=== PATIENT | male | born 1995 | race Hispanic/Latino ===

== ENCOUNTER 2017-09-15 12:07 | Emergency (ER) | payer SELFPAY ==
[2017-09-15] MEDS ORDERED: KETOROLAC TROMETHAMINE 30MG/ML ONE (12:55)
== END 2017-09-15 13:29 | disposition home or self-care (01) ==
LOC: EDH 12:07
DX: M25.511 Pain in right shoulder (principal); G40.802 Other epilepsy, not intractable, without status epilepticus; Z72.0 Tobacco use
CPT/HCPCS: 73030; 82948; 96372; 99284; J1885

== ENCOUNTER 2024-11-08 19:28 | Emergency (ER) | payer BC ==
[~2024-11-08] VITALS: Ht 167.6 cm; Wt 86.2 kg
[~2024-11-08 19:28] MED LIST: AMOX1TAB16 PO
--- NOTE | 2024-11-08 19:53 | ERN ---
ED Note History of Present Illness Stated Complaint: HERE FOR SUTURE REMOVAL Chief Complaint: Suture/Staple Removal Time Seen by MD: 19:30 Time Seen by Midlevel: 19:33 Dictation: 29-year-old male with no past medical history in for suture removal to the left eye. The sutures were placed five days ago and was told to return today to remove sutures. Patient denies any complaints any injury no fever no signs of infection. Allergies: Coded Allergies: No Known Allergies (Unverified Allergy, Unknown, 11/04/24) Home Meds Active Scripts Amoxicillin/Potassium Clav (Amox Tr-K Clv 875-125 mg Tab) 875 Mg-125 Mg Tablet, 1 TAB PO BID for 5 Days, #10 TAB 0 Refills Prov:BASSEM CONTRERAS CORE PILER 11/04/24 Past Medical History Past Medical History: No Pertinent History Surgical History: None Review of System Dictation Constitutional: Negative for fever,chills, and weight loss Eyes: Negative for injury, pain,redness, and discharge ENT: Negative for injury,pain or swelling Cardiovascular: Negative for chest pain, palpitations, and edema Respiratory: Negative for shortness of breath, cough, and wheezing, Abdomen/GI: Negative for abdominal pain, nausea, vomiting, diarrhea, and constipation Back: Negative for injury and pain : Negative for injury, bleeding and discharge MS/Extremity: Negative for injury and deformity Skin: Negative for rash, and discoloration, sutures to the left eye Neuro: Negative for headache, weakness, numbness, tingling, and seizure Psych: Negative for suicide ideation, homicidal ideation, and hallucinations Review of Systems: was completed Initial Vital Sign VS Vital Signs Date Time Temp Pulse Resp B/P (MAP) Pulse Ox O2 Delivery O2 Flow Rate FiO2 11/08/24 19:29 98.4 97 20 159/94 99 Room Air Physical Exam Dictation General: awake, alert, NAD Head/Face: Normocephalic, atraumatic Eyes: PERRL, EOMI, vision at baseline ENT: oral cavity clear, TMs clear, no signs of infection Neck: Trachea midline, supple, no nuchal rigidity Cardiovascular: RRR, normal S1/S2, No MRGs, no JVD Respiratory: CTAB, no respiratory distress, No rales or wheezes Abdomen: Soft, non-tender, non-distended, normal bowel sounds, no guarding or rebound. Skin: Warm, dry, normal turgor, no rash, sutures intact, there is no signs of infection there there is ecchymosis around the eye no vision changes MS/Extremity: Pulses equal, no cyanosis, neurovascular intact, FROM Neuro: COAx4, GCS 15, strength 5/5, CN 2-12 intact, normal cerebellar exam, n ormal gait, Psych: Normal behavior, mood, and affect normal ED Course ED Course Vital Signs Date Time Temp Pulse Resp B/P (MAP) Pulse Ox O2 Delivery O2 Flow Rate FiO2 11/08/24 19:29 98.4 97 20 159/94 99 Room Air Medical Decision Making MDM MDM: 29-year-old male with no past medical history in for suture removal to the left eye. The sutures were placed five days ago and was told to return today to remove sutures. Patient denies any complaints any injury no fever no signs of infection. Sutures were removed by ER MD. Patient tolerated to procedure. Discussed with the patient to continue to keep the area clean and dry and to return if any symptoms of infection. Patient verbalized understanding, answered all questions. Differential diagnosis: Infected sutures, wound dehiscence Rationale: Tests considered and ordered secondary to shared decision making include: Previous outside records reviewed: Old ER visits. Risk of complication and/or morbidity or mortality of patient management: None Medications-Per medication reconciliation Need for hospitalization: Patient does not meet criteria for hospitalization. Need for emergency major/minor surgery: No There are no social concerns with this patient. Prescription drug management Prescriptions will include symptomatic care Patient's prior external medical records from other ER visits were reviewed by me as indicated. Prior testing and results from previous visits were reviewed. Prior tests were taken into account with medical decision making and resource utilization, independent historian/historians were used to obtain complete medical history. I independently interpreted the test that were performed, results were reviewed by me and considered findings on radiology if ordered. Medical management and examination interpretation discussions were had by me with other qualified healthcare professionals as indicated for the patient's care. DX & DISP Disposition: Discharge Departure Impression: Primary Impression: Visit for suture removal Condition: Stable Additional Instructions: Keep the area clean and dry. Return if you have any signs of infection. Referrals: SELF,REFERRAL (PCP) Time of Disposition: 19:53 I have reviewed the case, and I agree with, Diagnosis and Plan CASSANDRA DOAN NP November 08, 2024 19:53
[2024-11-08 20:01] VITALS: BP 162/84; PULSE 89; RESP 18; TEMP 98.3; O2SAT 99
== END 2024-11-08 20:04 | disposition home or self-care (01) ==
LOC: EDH 19:28
DX: S05.32XD Ocular laceration without prolapse or loss of intraocular tissue, left eye, subsequent encounter (principal); X58.XXXD Exposure to other specified factors, subsequent encounter
CPT/HCPCS: 99281